=== PATIENT | male | born 2000 | race African-American/Black ===

== ENCOUNTER 2018-08-09 14:00 | Emergency (ER) | payer BC ==
[~2018-08-09] VITALS: Ht 185.4 cm; Wt 75.7 kg
[2018-08-09 14:28] VITALS: BP 148/80
[2018-08-09] MEDS ORDERED: LIDOCAINE-MPF 1%, 5ML INFIL ONE (15:00)
[2018-08-09] MEDS ORDERED: LIDOCAINE-MPF 1%, 2ML ONE ×2 (15:07→15:08)
--- NOTE | 2018-08-09 15:09 | NUR ---
RIGHT ARM LUMP. I&D AT BEDSIDE
--- NOTE | 2018-08-09 15:37 | NUR ---
POST I&D BY PROVIDER, DRESSING PLACED. PT AMBULATED TO DISCHARGE WINDOW, STEADY GAIT.
== END 2018-08-09 15:40 | disposition home or self-care (01) ==
LOC: ED 15:34
DX: L02.411 Cutaneous abscess of right axilla (principal)
CPT/HCPCS: 10060; 99283